=== PATIENT | male | born 1985 | race Two or more races ===

== ENCOUNTER 2025-01-31 11:03 | Emergency (ER) | payer OTHER ==
[~2025-01-31] VITALS: Ht 167.6 cm; Wt 88.0 kg
[2025-01-31 12:52] LABS: URINE APPEARANCE Clear; URINE BILIRRUBIN Negative (NEGATIVE); URINE BLOOD Moderate; URINE COLOR Yellow; URINE GLUCOSE Negative (NEGATIVE); URINE KETONE 15 (NEGATIVE); URINE LEUKOCYTE Moderate; URINE NITRATE Negative; URINE PROTEIN Negative (NEGATIVE); URINE UROBILINOGEN 0.2 E.U./dl
[2025-01-31 12:56] LABS: URINE BACTERIA 114.0 uL (0.0-1933); URINE WBC 32.5 uL (0.0-23.2)
[2025-01-31 12:59] LABS: URINE CAST 0.00 uL (0.0-1.40); URINE EPITHELIAL CELLS 0.6 uL (0.0-38.8); URINE RBC 0.4 uL (0.0-20.8)
== END 2025-01-31 14:12 | disposition home or self-care (01) ==
LOC: ER 11:03
PROVIDERS: General Practice
DX: R30.0 Dysuria (principal)

== ENCOUNTER 2025-03-06 12:07 | Inpatient (IN) | payer OTHER ==
[~2025-03-06] VITALS: Ht 182.9 cm; Wt 83.5 kg
[2025-03-06 13:26] LABS: RH POSITIVE
[2025-03-07 07:12] LABS: INR 1.18
[2025-03-07 08:02] LABS: COL EPI 104 SECONDS (82-175)
[2025-03-13] MEDS ORDERED: METRONIDAZOLE/SODIUM CHLORIDE 500 MG/100 ML PIGGYBACK IV ONE (10:40)
[2025-03-13] MEDS ORDERED: BUPIVACAINE HCL/MPF 0.5% 30ML VIAL ONE (10:40)
[2025-03-13] MEDS ORDERED: CEFTRIAXONE SODIUM 2,000 MG VIAL ONE (10:40)
[2025-03-13] MEDS ORDERED: LIDOCAINE HCL 1%/EPINEPHRINE 20ML VIAL IJ ONE (10:40)
[2025-03-13] MEDS ORDERED: ONDANSETRON HCL 2 MG/ML VIAL IV PRN (13:45)
[2025-03-13] MEDS ORDERED: RINGERS SOLUTION,LACTATED 1,000 ML IV SCH (13:45)
[2025-03-13] MEDS ORDERED: OxyCODONE HCL 5 MG TABLET (ROXICODONE) PO PRN (13:45)
[2025-03-13] MEDS ORDERED: DEXTROSE 50 % IN WATER 0.5 G/ML VIAL IV PRN (13:45)
[2025-03-13] MEDS ORDERED: MORPHINE SULFATE 4 MG/ML CARTRIDGE IV PRN (13:45)
[2025-03-13] MEDS ORDERED: ACETAMINOPHEN 500 MG GEL..CAP PO SCH (14:00)
[2025-03-13] MEDS ORDERED: ENALAPRILAT DIHYDRATE 1.25 MG/ML VIAL IV PRN (14:45)
[2025-03-13] MEDS ORDERED: GABAPENTIN 300 MG CAPSULE PO SCH (17:00)
[2025-03-13] MEDS ORDERED: HYOSCYAMINE SULFATE 0.125 MG TAB.SUBL SL SCH (17:00)
[2025-03-13] MEDS ORDERED: PIPERACILLIN/TAZOBACTAM SODIUM 3.375 GM in DEXTROSE 5 % IN WATER 100 ML IV SCH (18:00)
[2025-03-13] MEDS ORDERED: PIPERACILLIN/TAZOBACTAM SODIUM 3.375 GM VIAL IV ONE (18:43)
[2025-03-13 19:02] VITALS: BP 130/84; O2SAT 93
[2025-03-13 19:13] LABS: BASO % 0.2 % (0.1-1.2); EOS # 0.00 (0.04-0.54); EOS % 0.0 % (0.7-7.0); LYMPH # 0.40 (1.18-3.74); LYMPH % 2.8 % (19.3-53.1); MEAN PLATELET VOLUME 10.40 fl (9.4-12.4); MONO # 0.81 (0.24-0.82); MONO % 5.8 % (4.7-12.5); NEUT # 12.77 (1.56-6.13); NEUT % 90.9 % (34.0-71.1); RED CELL DISTRIBUTION WIDTH 13.1 % (11.6-14.4)
[2025-03-13 19:52] LABS: BUN CREA RATIO 8.0 (7.0-25.0); CREATININE SERUM 0.91 mg/dL (0.70-1.30); GFR 92.27; GLUCOSE FASTING 134.0 mg/dL (65-100); OSMOLALITY SERUM 279.0 MOSM/KG (275-295)
[2025-03-13] MEDS ORDERED: FAMOTIDINE/PF 20 MG/2 ML VIAL IV PUSH SCH (21:00)
[2025-03-14] VITALS: BP 121/79; O2SAT 95
[2025-03-14 06:49] LABS: BASO % 0.3 % (0.1-1.2); EOS # 0.02 (0.04-0.54); EOS % 0.2 % (0.7-7.0); LYMPH # 0.98 (1.18-3.74); LYMPH % 9.9 % (19.3-53.1); MEAN PLATELET VOLUME 10.80 fl (9.4-12.4); MONO # 1.02 (0.24-0.82); MONO % 10.4 % (4.7-12.5); NEUT # 7.77 (1.56-6.13); NEUT % 78.9 % (34.0-71.1); RED CELL DISTRIBUTION WIDTH 13.0 % (11.6-14.4)
[2025-03-14 07:30] LABS: BUN CREA RATIO 7.0 (7.0-25.0); CREATININE SERUM 0.73 mg/dL (0.70-1.30); GFR 119.0; GLUCOSE FASTING 99.0 mg/dL (65-100); OSMOLALITY SERUM 280.0 MOSM/KG (275-295)
[2025-03-14 08:00] VITALS: BP 116/78; O2SAT 95
[2025-03-14] MEDS ORDERED: MAGNESIUM SULFATE IN WATER 50 ML IV NR (12:00)
[2025-03-14 15:30] VITALS: BP 126/82; O2SAT 96
[2025-03-14] MEDS ORDERED: ENOXAPARIN SODIUM 40 MG/0.4 ML SYRINGE SUBCUTANEO SCH (17:00)
[2025-03-15 01:12] VITALS: BP 116/78; O2SAT 100
[2025-03-15 06:19] LABS: BASO % 0.7 % (0.1-1.2); EOS # 0.07 (0.04-0.54); EOS % 1.0 % (0.7-7.0); LYMPH # 1.23 (1.18-3.74); LYMPH % 17.9 % (19.3-53.1); MEAN PLATELET VOLUME 10.70 fl (9.4-12.4); MONO # 0.87 (0.24-0.82); NEUT # 4.65 (1.56-6.13); NEUT % 67.5 % (34.0-71.1); RED CELL DISTRIBUTION WIDTH 13.3 % (11.6-14.4)
[2025-03-15 06:36] LABS: MONO % 12.6 % (4.7-12.5)
[2025-03-15 06:57] LABS: BUN CREA RATIO 7.0 (7.0-25.0); CREATININE SERUM 0.87 mg/dL (0.70-1.30); GFR 97.19; GLUCOSE FASTING 90.0 mg/dL (65-100); OSMOLALITY SERUM 286.0 MOSM/KG (275-295)
[2025-03-15 08:55] VITALS: BP 125/85; O2SAT 95
[2025-03-15] MEDS ORDERED: ENOXAPARIN SODIUM 40 MG/0.4 ML SYRINGE SUBCUTANEO SCH (09:00)
[2025-03-15 16:00] VITALS: BP 110/71; O2SAT 98
[2025-03-16 08:16] VITALS: BP 121/75; O2SAT 95
[2025-03-16 16:31] VITALS: BP 126/76; O2SAT 98
== END 2025-03-16 18:37 | disposition home or self-care (01) | DRG 330 ==
LOC: SURG 03-13 10:30 → O/R 03-13 11:00 → SURG 03-13 12:15 → O/R 03-14 13:16 → SURG 03-14 13:18
PROVIDERS: ADMIT Surgery; ATTEND Surgery
PROC: 0DTN4ZZ Resection of Sigmoid Colon, Percutaneous Endoscopic Approach (ICD-10-PCS; principal; 2025-03-13)
PROC: 0DBP4ZZ Excision of Rectum, Percutaneous Endoscopic Approach (ICD-10-PCS; 2025-03-13)
PROC: 0DJD8ZZ Inspection of Lower Intestinal Tract, Via Natural or Artificial Opening Endoscopic (ICD-10-PCS; 2025-03-13)
DX: K57.20 Diverticulitis of large intestine with perforation and abscess without bleeding (principal); K55.1 Chronic vascular disorders of intestine; N32.1 Vesicointestinal fistula

== ENCOUNTER → 2025-03-12 06:05 | Outpatient (CLI) | payer OTHER ==
[2025-03-12 07:45] LABS: INR 1.15
== END | disposition home or self-care (01) ==
LOC: LAB 06:05
PROVIDERS: ATTEND Internal Medicine Geriatric Medicine
DX: D68.9 Coagulation defect, unspecified (principal)